=== PATIENT | male | born 1965 | race American Indian/Alaskan Native ===

== ENCOUNTER 2016-11-29 13:52 | Emergency (ER) | payer BC, OTHER ==
[2016-11-29 14:07] VITALS: BP 137/89
[2016-11-29] MEDS ORDERED: TORADOL IM ONE (15:21)
[2016-11-29] MEDS ORDERED: MOTRIN PO ONE (15:36)
--- NOTE | 2016-11-29 15:37 | Emergency Department Report ---
ED Lower Extremity HPI - General Chief Complaint: Extremity Injury, Lower Stated Complaint: LT LEG PAIN Time Seen by Provider: 11/29/16 14:58 Source: patient Mode of arrival: Ambulatory Limitations: No Limitations - History of Present Illness -: Sudden Injury: Ankle: Left Place: home Severity: moderate Improves With: nothing Worsens With: movement Context: other (WAS PLAYING B BALL WALKED BACKWARD; RECENTLY ON STEROIDS) Associated Symptoms: snap/pop sensation - Related Data Previous Rx's Medication Instructions Recorded Last Taken Type traMADol [Ultram 50 MG tab] 50 mg PO Q6HR PRN #15 tablet 07/11/13 Unknown Rx Naproxen [Naprosyn] 500 mg PO BID PRN #20 tablet 11/29/16 Unknown Rx Allergies Allergy/AdvReac Type Severity Reaction Status Date / Time No Known Allergies Allergy Unverified 07/10/13 23:50 ED Review of Systems ROS: Stated complaint: LT LEG PAIN Other details as noted in HPI Comment: All other systems reviewed and negative Constitutional: no symptoms reported, see HPI. denies: chills Eyes: as per HPI. denies: eye pain ENT: as per HPI. denies: ear pain, throat pain Respiratory: no symptoms reported, see HPI. denies: cough, orthopnea Cardiovascular: as per HPI. denies: chest pain, palpitations, dyspnea on exertion, orthopnea Endocrine: no symptoms reported, see HPI. denies: excessive sweating, flushing , intolerance to cold, intolerance to heat Gastrointestinal: as per HPI. denies: abdominal pain, nausea Genitourinary: as per HPI. denies: urgency, dysuria Musculoskeletal: as per HPI, other (ANKLE PAIN). denies: back pain Skin: as per HPI. denies: rash, lesions Neurological: as per HPI. denies: headache, weakness Psychiatric: as per HPI. denies: anxiety, depression Hematological/Lymphatic: as per HPI. denies: easy bleeding ED Past Medical Hx - Past Medical History Previous Medical History?: No - Surgical History Past Surgical History?: No - Social History Smoking Status: Former Smoker Substance Use Type: None - Medications Home Medications: Home Medications Medication Instructions Recorded Confirmed Last Taken Type traMADol [Ultram 50 MG tab] 50 mg PO Q6HR PRN #15 tablet 07/11/13 Unknown Rx Naproxen [Naprosyn] 500 mg PO BID PRN #20 tablet 11/29/16 Unknown Rx ED Physical Exam - General Limitations: No Limitations General appearance: alert - Head Head exam: Present: atraumatic - Eye Eye exam: Present: PERRL - ENT ENT exam: Present: mucous membranes moist - Neck Neck exam: Present: normal inspection - Respiratory Respiratory exam: Present: normal lung sounds bilaterally - Cardiovascular Cardiovascular Exam: Present: regular rate - GI/Abdominal GI/Abdominal exam: Present: soft - Rectal Rectal exam: Present: deferred - Expanded Lower Extremity Exam Left Ankle exam: Present: tenderness, swelling. Absent: full ROM, abrasion, laceration, ecchymosis, deformity, crepidus, dislocation, erythema, anterior draw sign - Back Exam Back exam: Present: normal inspection - Neurological Exam Neurological exam: Present: alert, oriented X3 - Psychiatric Psychiatric exam: Present: normal affect, normal mood - Skin Skin exam: Present: warm, dry, intact ED Course Vital Signs 11/29/16 14:02 Temperature 97.5 F L Pulse Rate 94 H Respiratory 18 Rate Blood Pressure 137/89 O2 Sat by Pulse 97 Oximetry - Reevaluation(s) Reevaluation #1: 11/29/16 15:41 TO ER P PLAYING BBALL TODAY HE WAS WALKING BACKWARD WHEN HE FELT A POP HE HAS A BULGE POST OVER ACHILLES DIFF W FLEX OR EXTEND POS KINCAID GOOD PULSES CAP REFILL ED Lower Extremity MDM - Radiology Data Radiology results: image reviewed - Medical Decision Making CONCERN FOR ACHILLES RUPTURE SPLINT IMMOB/ CRUTCH ORTHO Critical care attestation.: If time is entered above; I have spent that time in minutes in the direct care of this critically ill patient, excluding procedure time. ED Disposition Clinical Impression: Achilles rupture Disposition: DC- TO HOME OR SELFCARE Is pt being admited?: No Does the pt Need Aspirin: No Condition: Stable Instructions: Achilles Tendon Rupture (ED) Additional Instructions: SPLINT ICE CRUTCHES NO WEIGHT BEARING PAIN MEDS ORDERED FOLLOW UP THURSDAY WITH ORTHO TELL THEM WHAT HAPPENED AND WE SUSPECT ACHILLES THEY SHOULD SEE YOU ERIC [facility] OR ANY YOU PREFER Prescriptions: Naproxen [Naprosyn] 500 mg PO BID PRN #20 tablet PRN Reason: Pain Referrals: SHADY DONALDSON MD [Primary Care Provider] - 3-5 Days JEF BOWLES MD [Staff Physician] - 3-5 Days IZAIAH GARCIA MD [Staff Physician] - 3-5 Days Forms: Work/School Release Form(ED) Time of Disposition: 15:34
--- NOTE | 2016-11-29 16:04 | XRay Report ---
FINAL REPORT EXAM: XR ANKLE 3+V LT HISTORY: left ankle and Achilles tendon pain. PATIENT SAID THAT HE HURT HIS LT ANKLE STEPPING BACKWARDS WHILE PLAYING BASKET BALL. TECHNIQUE: Three views of the left ankle were performed FINDINGS: There is normal bony mineralization. There is no fracture or dislocation. The mortise is preserved. The plafond is intact. There is no ankle joint effusion. The soft tissue density of the Achilles has a normal configuration by plain film. There is mild degenerative change of the dorsal hindfoot. IMPRESSION: No acute fracture or dislocation. The distal Achilles has a normal soft tissue density in the lateral projection. The pre Achilles fat plane is mildly blurred proximally. If there is a concern for Achilles tendon injury, recommend MRI. No definite ankle joint effusion.
== END 2016-11-29 16:42 | disposition home or self-care (01) ==
LOC: ED 13:52
DX: S86.012A Strain of left Achilles tendon, initial encounter (principal); Z87.891 Personal history of nicotine dependence; X58.XXXA Exposure to other specified factors, initial encounter; Y93.64 Activity, baseball; Y92.89 Other specified places as the place of occurrence of the external cause; Y99.8 Other external cause status
CPT/HCPCS: 29515; 73610; 99284; J1885